=== PATIENT | male | born 1985 | race African-American/Black ===

== ENCOUNTER 2018-04-28 20:13 | Emergency (ER) | payer OTHER ==
[2018-04-28 20:18] VITALS: BP 118/76; PULSE 67; TEMP 98.1; BMI 23.8
--- NOTE | 2018-04-28 20:24 | PDOC ---
History of Present Illness <Little Snell - Last Filed: 04/28/18 21:37> - General History Source: Patient Exam Limitations: No Limitations - History of Present Illness Initial Comments: 04/28/18 21:07 Patient is a 32 year old male with a significant past medical history of Chlamydia who presents to the ED with complaints of superpubic discomfort that began x4 days ago. Patient reports having sexual intercourse wed night, followed by superpubic discomfort earlier the next day. He reports thinking nothing of adonay pain at first stating i felt like it was in my mind. Patient reports becoming concerned after discomfort did not subside overtime. He reports getting chlamydia from this partner once before, prompting him to come into the ED for further evaluation. Patient notes he always uses condoms during intercourse but states in this incident it broke. Denies chest pain, Sob. Denies nausea, vomiting. Denies contact with sick individuals, out of state travelling. Denies fevers, chills. Denies dysuria, hematuria, or penile discharge. Denies diarrhea, constipation. Denies any other symptoms. Allergies: None Social history: [employer] business [employer]. Current smoker (5 cigarettes per day). Social drinker. No illicit drugs. Surgical history: None PMD: None <Nestor Nichols - Last Filed: 04/28/18 23:12> - General Chief Complaint: Pain Stated Complaint: ABD PAIN Time Seen by Provider: 04/28/18 20:15 Past History - Past Medical History COPD: No Other medical history: HIV + - Suicide/Smoking/Psychosocial Hx Smoking History: Never smoked Have you smoked in the past 12 months: No Hx Alcohol Use: No Drug/Substance Use Hx: No <Little Snell - Last Filed: 04/28/18 21:37> <Nestor Nichols - Last Filed: 04/28/18 23:12> - Past Medical History Allergies/Adverse Reactions: Allergies Allergy/AdvReac Type Severity Reaction Status Date / Time No Known Allergies Allergy Verified 04/28/18 20:14 Home Medications: Ambulatory Orders Emtricitab/Rilpiviri/Tenof Ala [Odefsey Tablet] 1 each PO DAILY 04/28/18 Review of Systems - Review of Systems Able to Perform ROS?: Yes Comments:: 04/28/18 21:08 GENERAL/CONSTITUTIONAL: No fever or chills. No weakness. HEAD, EYES, EARS, NOSE AND THROAT: No change in vision. No ear pain or discharge. No sore throat. CARDIOVASCULAR: No chest pain or shortness of breath. RESPIRATORY: No cough, wheezing, or hemoptysis. GASTROINTESTINAL: No nausea, vomiting, diarrhea or constipation. GENITOURINARY: +Superpubic discomfort. No dysuria, frequency, or change in urination. MUSCULOSKELETAL: No joint or muscle swelling or pain. No neck or back pain. SKIN: No rash NEUROLOGIC: No headache, vertigo, loss of consciousness, or change in strength/ sensation. ENDOCRINE: No increased thirst. No abnormal weight change. HEMATOLOGIC/LYMPHATIC: No anemia, easy bleeding, or history of blood clots. ALLERGIC/IMMUNOLOGIC: No hives or skin allergy. <Nestor Nichols - Last Filed: 04/28/18 23:12> *Physical Exam - Vital Signs Last Vital Signs Temp Pulse Resp BP Pulse Ox 98.1 F 67 18 118/76 99 04/28/18 20:13 04/28/18 20:13 04/28/18 20:13 04/28/18 20:13 04/28/18 20:13 <Little Snell - Last Filed: 04/28/18 21:37> - Vital Signs Last Vital Signs Temp Pulse Resp BP Pulse Ox 98.1 F 67 18 118/76 99 04/28/18 20:13 04/28/18 20:13 04/28/18 20:13 04/28/18 20:13 04/28/18 20:13 - Physical Exam Comments: 04/28/18 21:08 GENERAL: Awake, alert, and fully oriented, in no acute distress HEAD: No signs of trauma EYES: PERRLA, EOMI, sclera anicteric, conjunctiva clear ENT: Auricles normal inspection, hearing grossly normal, nares patent, oropharynx clear without exudates. Moist mucosa NECK: Normal ROM, supple, no lymphadenopathy, JVD, or masses LUNGS: Breath sounds equal, clear to auscultation bilaterally. No wheezes, and no crackles HEART: Regular rate and rhythm, normal S1 and S2, no murmurs, rubs or gallops ABDOMEN: Soft, nontender, normoactive bowel sounds. No guarding, no rebound. No masses GENITOURINARY: No penile discharge. No lesions. No scrotal masses. No tenderness or other abnormalities. EXTREMITIES: Normal range of motion, no edema. No clubbing or cyanosis. No cords, erythema, or tenderness NEUROLOGICAL: Cranial nerves II through XII grossly intact. Normal speech, normal gait SKIN: Warm, Dry, normal turgor, no rashes or lesions noted.l <Nestor Nichols - Last Filed: 04/28/18 23:12> *DC/Admit/Observation/Transfer <Little Snell - Last Filed: 04/28/18 21:37> - Attestations Scribe Attestion: 04/28/18 21:08 Documentation prepared by Nestor Nichols, acting as paramedical aide for Little Snell MD. <Nestor Nichols - Last Filed: 04/28/18 23:12> Diagnosis at time of Disposition: Pelvic pain in male - Discharge Dispostion Disposition: HOME Condition at time of disposition: Stable - Patient Instructions Printed Discharge Instructions: How to Detect and Treat STDs Additional Instructions: Follow-up with your urologist within the next 3-4 days continue odefsey as prescribed Always use condoms, as discussed Return to ER if you have worsening pain or develop fever/vomiting
[2018-04-28 21:11] LABS: PH,URINE 5.5 (4.5-8); URINE APPEARANCE Clear; URINE BILIRUBIN Negative (NEGATIVE); URINE COLOR Yellow; URINE GLUCOSE (UA) Negative (NEGATIVE); URINE KETONE Negative (NEGATIVE); URINE LEUK ESTERASE Negative (NEGATIVE); URINE NITRITE Negative (NEGATIVE); URINE PROTEIN Negative (NEGATIVE); URINE UROBILINOGEN 0.2 (0.2-1.0)
[2018-04-28] MEDS ORDERED: AZITHROMYCIN 500 MG TABLET PO ONE (21:36)
[2018-04-28] MEDS ORDERED: AZITHROMYCIN 1 GM PACKET ONE (21:38)
[2018-04-28 21:41] LABS: AMORP URATES FEW /hpf (NONE SEEN); EPI CELLS FEW /HPF; URINE BACTERIA NEGATIVE /hpf (NEGATIVE); URINE WBC 0-2 (0-2)
== END 2018-04-28 21:48 | disposition home or self-care (01) ==
LOC: FER 20:13
DX: R10.2 Pelvic and perineal pain (principal); Z21 Asymptomatic human immunodeficiency virus [HIV] infection status
CPT/HCPCS: 36415; 81003; 81015; 87086; 87491; 87591; 99283-25